=== PATIENT | female | born 1960 | race Caucasian/White ===

== ENCOUNTER 2017-08-20 05:58 | Day surgery (SDC) | payer OTHER ==
[~2017-08-20] VITALS: Ht 160 cm; Wt 63.9 kg
[2017-08-20] MEDS ORDERED: HEPARIN 1000 UNITS/NS (A-LINE) 0 ML ONE (06:43)
[2017-08-20] MEDS ORDERED: BUPIVACAINE 0.5%/EPI (SDV) 30 ML INJ ONE (06:45)
[2017-08-20] MEDS ORDERED: THROMBIN 5000 UNIT VIAL ONE (06:45)
[2017-08-20] MEDS ORDERED: LIDOCAINE 0.5% (MDV) 50 ML INJ ONE (06:46)
[2017-08-20 07:02] VITALS: Ht 160 cm; Wt 63.9 kg
[2017-08-20 07:13] VITALS: BP 132/85; PULSE 88; RESP 16
[2017-08-20] MEDS ORDERED: HYDR25TA6 PO (07:23)
[2017-08-20] MEDS ORDERED: GLIP5TAB13 PO (07:23)
[2017-08-20] MEDS ORDERED: ASPI81TA3 PO (07:23)
[2017-08-20] MEDS ORDERED: FAMO20TA18 PO (07:23)
== END 2017-08-20 08:26 | disposition home or self-care (01) ==
LOC: REC 05:58 → SDS 05:58 → UNDOADMIN 05:58 → EDSTATUS 07:30 → SDS 08:26 → UNDODISIN 08:26 → SDS 08-22 15:28
PROVIDERS: ATTEND Thoracic Surgery (Cardiothoracic Vascular Surgery)
DX: K22.0 Achalasia of cardia (principal); Z53.9 Procedure and treatment not carried out, unspecified reason
CPT/HCPCS: 82962; 84703; J1644